=== PATIENT | female | born 1995 | race Two or more races ===

== ENCOUNTER 2018-05-01 19:10 | Emergency (ER) | payer SELFPAY ==
--- NOTE | 2018-05-01 19:42 | ER Document Report ---
ED Medical Screen (RME) - General Chief Complaint: Vag Bleeding, +preg <12wks Stated Complaint: VAGINAL BLEEDING Time Seen by Provider: 05/01/18 19:38 Mode of Arrival: Ambulatory Information source: Patient, Relative Notes: 22-year-old female at approximately 5 weeks and 5 days gestation per last menstrual period which the patient reports to be March 22, 2018 presents with complaint of abdominal cramping and vaginal bleeding that started 3 hours prior to arrival. Patient reports a positive home test. She has not received care yet. I have greeted and performed a rapid initial assessment of this patient. A comprehensive ED assessment and evaluation of the patient, analysis of test results and completion of medical decision making process we will be contacted by additional ED providers. PHYSICAL EXAMINATION: Vital signs reviewed-within normal limits GENERAL: Well-appearing, well-nourished and in no acute distress. LUNGS: No respiratory distress Musculoskeletal: Normal range of motion NEUROLOGICAL: Normal speech, normal gait. PSYCH: Normal mood, normal affect. SKIN: Warm, Dry, normal turgor, no rashes or lesions noted. TRAVEL OUTSIDE OF THE [place] IN LAST 30 DAYS: No - HPI Onset: This afternoon Onset/Duration: Sudden Quality of pain: Cramping Severity: Mild Associated Symptoms: Abdominal pain, Vaginal bleeding Exacerbated by: Denies Relieved by: Denies Similar symptoms previously: No Recently seen / treated by doctor: No - Related Data Smoking: Non-smoker Frequency of alcohol use: None Drug Abuse: None Allergies/Adverse Reactions: No Known Allergies Allergy (Unverified 05/01/18 19:14) Physical Exam - Vital signs Vitals: Temp Pulse Resp BP Pulse Ox 98.0 F 82 16 128/70 H 100 05/01/18 19:28 05/01/18 19:28 05/01/18 19:28 05/01/18 19:28 05/01/18 19:28 Course - Vital Signs Vital signs: Temp Pulse Resp BP Pulse Ox 98.0 F 82 16 128/70 H 100 05/01/18 19:28 18 19:28 18 19:28 05/01/18 19:28 05/01/18 19:28
[2018-05-01 19:56] LABS: APPEARANCE,URINE SLIGHTLY-CLOUDY; BILIRUBIN,URINE NEGATIVE (NEGATIVE); COLOR,URINE YELLOW; GLUCOSE, URINE NEGATIVE (NEGATIVE); KETONES,URINE NEGATIVE (NEGATIVE); LEUKOCYTE ESTERASE,URINE TRACE (NEGATIVE); NITRITE,URINE NEGATIVE (NEGATIVE); PROTEIN,URINE NEGATIVE (NEGATIVE); URINE SPECIFIC GRAVITY 1.015; UROBILINOGEN,URINE NEGATIVE mg/dL (<2.0)
--- NOTE | 2018-05-01 20:39 | ER Document Report ---
ED General - General Chief Complaint: Vag Bleeding, +preg <12wks Stated Complaint: VAGINAL BLEEDING Time Seen by Provider: 05/01/18 19:38 Mode of Arrival: Ambulatory Information source: Patient Notes: 22-year-old female with no prior medical problems, 1 para 0, reports positive home test (last normal period March 22) who presents to the emergency room with vaginal spotting, cramping. Patient states his symptoms started this evening. TRAVEL OUTSIDE OF THE [place] IN LAST 30 DAYS: No - HPI Onset: Just prior to arrival Onset/Duration: Gradual Quality of pain: No pain Severity: None Pain Level: Denies Associated symptoms: denies: Chest pain, Fever, Shortness of breath Exacerbated by: Denies Relieved by: Denies Similar symptoms previously: No Recently seen / treated by doctor: No - Related Data Allergies/Adverse Reactions: No Known Allergies Allergy (Unverified 05/01/18 19:14) Past Medical History - General Information source: Patient, Relative Last Menstrual Period: 03/22/18 - Social History Smoking Status: Unknown if Ever Smoked Cigarette use (# per day): No Chew tobacco use (# tins/day): No Frequency of alcohol use: None Drug Abuse: None Lives with: Family Family History: None Patient has suicidal ideation: No Patient has homicidal ideation: No - Medical History Medical History: Negative Renal/ Medical History: Denies: Hx Peritoneal Dialysis Surgical Hx: Negative Review of Systems - Review of Systems Constitutional: denies: Chills, Fever EENT: No symptoms reported Cardiovascular: No symptoms reported Respiratory: No symptoms reported Gastrointestinal: No symptoms reported Genitourinary: See HPI Female Genitourinary: See HPI Musculoskeletal: No symptoms reported Skin: No symptoms reported Hematologic/Lymphatic: No symptoms reported Neurological/Psychological: No symptoms reported Physical Exam - Vital signs Vitals: Temp Pulse Resp BP Pulse Ox 98.0 F 82 16 128/70 H 100 05/01/18 19:28 05/01/18 19:28 05/01/18 19:28 05/01/18 19:28 05/01/18 19:28 Notes: Physical exam: GENERAL: She is alert and oriented x3, no acute distress HEAD: Atraumatic, normocephalic. EYES: Pupils equal round and reactive to light, extraocular movements intact, sclera anicteric, conjunctiva are normal. ENT: TMs normal, nares patent, oropharynx clear without exudates. Moist mucous membranes. NECK: Normal range of motion, supple without obvious mass or JVD. LUNGS: Breath sounds clear to auscultation bilaterally and equal. No wheezes rales or rhonchi. HEART: Regular rate and rhythm without murmurs, rubs or gallops. ABDOMEN: Soft, normoactive bowel sounds. No tenderness to palpation. No guarding, no rebound. No masses appreciated. EXTREMITIES: Normal range of motion, no pitting or edema. No clubbing or cyanosis. NEUROLOGICAL: Cranial nerves II through XII grossly intact. Normal speech, moving all extremities. PSYCH: Normal mood, normal affect. SKIN: Warm, Dry, normal turgor, no rashes or lesions noted. Course - Re-evaluation Re-evalutation: 05/02/18 00:17 Note: Patient's blood type is Rh+. She is been hemodynamically stable. Ultrasound shows an intrauterine gestational sac. It is too early to have a heartbeat at this point. I discussed the results with the patient. I have advised her to return to the emergency room for any worsening pain or bleeding. - Vital Signs Vital signs: Temp Pulse Resp BP Pulse Ox 98.1 F 80 16 125/72 100 05/01/18 23:00 05/01/18 23:00 05/01/18 23:00 05/01/18 23:00 05/01/18 23:00 - Laboratory Laboratory results interpreted by me: 05/01/18 05/01/18 19:45 19:56 Beta HCG, Quant 4568.50 H Urine Blood SMALL H Ur Leukocyte Esterase TRACE H Urine HCG, Qual POSITIVE H Discharge - Discharge Clinical Impression: Vaginal bleeding in early Condition: Stable Disposition: HOME, SELF-CARE Instructions: Vaginal Bleeding ([facility]) Additional Instructions: As we discussed, your ultrasound shows a very early (in the fifth week gestation ). I recommend taking it easy over the next several days Drink plenty of fluids, you can take Tylenol for cramping. Return to the emergency room for worsening pain or worsening bleeding. Otherwise, follow-up with an OB doctor or the health department. Referrals: CALE PAIGE MD [ACTIVE STAFF] - Follow up as needed ([facility] the [facility]) [facility] - Follow up as needed
--- NOTE | 2018-05-01 22:38 | RADIOLOGY REPORT (SQ) ---
US PELVIS HISTORY: Early . Pelvic pain. COMPARISON: None. TECHNIQUE: Grayscale, color Doppler, and spectral Doppler ultrasound images of the pelvis were obtained. FINDINGS: The uterus measures 7.2 x 4.4 x 4.8 cm. There is an intrauterine gestational sac with a mean sac diameter of 0.85 cm which corresponds to 5 weeks 5 days of . No yolk sac or pole is visualized at this time. The cervix is closed and measures 1.8 cm in length. The right ovary was not well visualized. The left ovary measures 3.1 x 2.1 x 1.5 cm and contains normal follicles and normal color Doppler blood flow. No pelvic free fluid is seen. IMPRESSION: Intrauterine gestational sac corresponding to 5 weeks 5 days of . No yolk sac or pole is seen at this time. Recommend short-term follow-up imaging.
[2018-05-01 23:14] VITALS: BP 125/72
== END 2018-05-01 23:00 | disposition home or self-care (01) ==
LOC: ER 19:10
DX: O26.851 Spotting complicating pregnancy, first trimester (principal); O26.891 Other specified pregnancy related conditions, first trimester; R10.2 Pelvic and perineal pain; Z3A.01 Less than 8 weeks gestation of pregnancy
CPT/HCPCS: 36415; 76817; 81001; 81025; 84702; 86900; 86901; 99284

== ENCOUNTER 2018-05-25 23:31 | Emergency (ER) | payer SELFPAY ==
[2018-05-26] MEDS ORDERED: METOCLOPRAMIDE HCL INJ/PF 10 MG/2 ML SDV IV ONE (01:28)
[2018-05-26] MEDS ORDERED: NORMAL SALINE 1000 ML 1,000 ML IV ONE (01:28)
--- NOTE | 2018-05-26 01:32 | ER Document Report ---
ED General - General Chief Complaint: Allergic Reaction Stated Complaint: FACIAL ITCHING,DIZZINESS,FATIGUE,HEART RACING Time Seen by Provider: 05/26/18 01:12 Notes: Patient is a 22-year-old female, at 8 weeks gestation by first trimester u ltrasound, that comes to the emergency department for chief complaint of vomiting and dehydration and . She states when she stands up she gets lightheaded. She also has a slightly itchy rash that has developed on her face only. She denies difficulty swallowing, difficulty breathing, fever, or specific abdominal pain she denies vaginal bleeding. She does not take any daily medications, she denies any past medical history. TRAVEL OUTSIDE OF THE [place] IN LAST 30 DAYS: No - Related Data Allergies/Adverse Reactions: No Known Allergies Allergy (Unverified 05/01/18 19:14) Past Medical History - General Information source: Patient - Social History Smoking Status: Never Smoker Frequency of alcohol use: None Drug Abuse: None Lives with: Family Family History: None - Medical History Medical History: Negative Renal/ Medical History: Denies: Hx Peritoneal Dialysis Surgical Hx: Negative - Immunizations Immunizations up to date: Yes Hx Diphtheria, Pertussis, Tetanus Vaccination: Yes Review of Systems - Review of Systems Constitutional: No symptoms reported EENT: No symptoms reported Cardiovascular: See HPI Respiratory: No symptoms reported Gastrointestinal: See HPI Genitourinary: No symptoms reported Female Genitourinary: No symptoms reported Musculoskeletal: No symptoms reported Skin: See HPI Hematologic/Lymphatic: No symptoms reported Neurological/Psychological: No symptoms reported Physical Exam - Vital signs Vitals: Temp Pulse Resp BP Pulse Ox 98.1 F 73 18 127/76 H 98 05/26/18 00:07 05/26/18 00:07 05/26/18 00:07 05/26/18 00:07 05/26/18 00:07 - Notes Notes: GENERAL: Alert, interacts well. No acute distress. HEAD: Normocephalic, atraumatic. EYES: Pupils equal, round, and reactive to light. Extraocular movements intact. ENT: Oral mucosa dry, tongue midline. Oropharynx unremarkable. Airway patent. Nares patent, no nasal septal hematoma, TM's intact. NECK: Full range of motion. Supple. Trachea midline. LUNGS: Clear to auscultation bilaterally, no wheezes, rales, or rhonchi. No respiratory distress. HEART: Regular rate and rhythm. No murmur ABDOMEN: Soft, non-tender. Non-distended. Bowel sounds present in all 4 quadrants. GENITOURINARY: Deferred EXTREMITIES: Moves all 4 extremities spontaneously. No edema, normal radial and dorsalis pedis pulses bilaterally. No cyanosis. BACK: no cervical, thoracic, lumbar midline tenderness. No saddle anesthesia, normal distal neurovascular exam. NEUROLOGICAL: Alert and oriented x3. Normal speech. [cranial nerves II through XII grossly intact]. PSYCH: Normal affect, normal mood. SKIN: There is a patchy, erythematous rash over the face, this is faint, no pustules, papules, wheals, vesicles, bulla, induration, or fluctuance. Course - Re-evaluation Re-evalutation: Mildly itchy rash over the face is most consistent with rash of . No evidence of urticaria, no evidence of necrotizing fasciitis, abscess, or other concerning abnormality. No other signs of possible allergy. Treating symptom of itching. Provided with Reglan, IV fluids. After Reglan patient started to have restless legs. She was given Benadryl and this resolved. After IV fluids she states her symptoms have completely resolved. No symptoms of dizziness. CBC unremarkable, chemistry generally unremarkable except for minimal elevation of the LFTs. Abdomen is completely benign. No bleeding or abdominal pain reported. Urinalysis showing some dehydration but otherwise a normal. Culture placed. Discussed with patient. Requesting to go home with nausea medication, does not want Reglan. Discussed Zofran and possible side effects, after discussion decision was made to provide her with this. Discussed follow-up and return precautions. Patient states understanding and agreement. - Vital Signs Vital signs: Temp Pulse Resp BP Pulse Ox 98.1 F 73 18 111/54 L 100 05/26/18 00:07 05/26/18 00:07 05/26/18 02:38 05/26/18 02:38 05/26/18 02:38 - Laboratory Result Diagrams: 05/26/18 01:36 05/26/18 01:36 Laboratory results interpreted by me: 05/26/18 05/26/18 01:22 01:36 Creatinine 0.51 L Calcium 10.4 H AST 38 H ALT 54 H Ur Leukocyte Esterase TRACE H Urine Ascorbic Acid 40 H Discharge - Discharge Clinical Impression: Dehydration, Vomiting affecting , Facial rash Condition: Stable Disposition: HOME, SELF-CARE Additional Instructions: You have been treated for dehydration. Take Zofran if needed for nausea/vomiting. Consider [id number] medication such as Pepcid for GI upset. To help with the itching of the rash take the Zyrtec as prescribed. This rash should resolve with time. Follow-up with primary care. Return if you worsen including severe spreading rash, fever, severe abdominal pain, passing out, or any other concerning or worsening symptoms. Prescriptions: Cetirizine HCl [Zyrtec 10 mg Tablet] 1 tab PO DAILY #30 tablet Ondansetron [Zofran Odt 4 mg Tablet] 1 - 2 tab PO Q4H PRN #30 tab.rapdis PRN Reason: For Nausea/Vomiting
[2018-05-26 01:47] LABS: ABSOLUTE EOSINOPHILS # (AUTO) 0.1 10^3/uL (0.0-0.6); ABSOLUTE LYMPHOCYTES (AUTO) 2.9 10^3/uL (0.5-4.7); ABSOLUTE MONOCYTES (AUTO) 0.8 10^3/uL (0.1-1.4); ABSOLUTE NEUT (AUTO) 6.7 10^3/uL (1.7-8.2); BASOPHILS % (AUTO) 0.4 % (0-2); EOSINOPHILS % (AUTO) 0.6 % (0-6); HEMATOCRIT 37.7 % (36.0-47.0); HEMOGLOBIN 13.1 g/dL (12.0-15.5); LYMPHOCYTES % (AUTO) 27.9 % (13-45); MEAN CORPUSCULAR HEMOGLOBIN 29.6 pg (27.0-33.4); MEAN CORPUSCULAR HGB CONC 34.7 g/dL (32.0-36.0); MEAN CORPUSCULAR VOLUME 85 fl (80-97); MONOCYTES % (AUTO) 7.6 % (3-13); PLATELET COUNT 271 10^3/uL (150-450); RED BLOOD COUNT 4.42 10^6/uL (3.72-5.28); RED CELL DISTRIBUTION WIDTH 13.2 % (11.5-14.0); SEGMENTED NEUTROPHILS % (AUTO) 63.5 % (42-78); TOTAL CELLS COUNTED % (AUTO) 100 %; WHITE BLOOD COUNT 10.5 10^3/uL (4.0-10.5)
[2018-05-26 01:49] LABS: APPEARANCE,URINE SLIGHTLY-CLOUDY; BILIRUBIN,URINE NEGATIVE (NEGATIVE); CALCIUM OXALATE CRYSTALS,URINE FEW /HPF; COLOR,URINE YELLOW; GLUCOSE, URINE NEGATIVE (NEGATIVE); KETONES,URINE NEGATIVE (NEGATIVE); LEUKOCYTE ESTERASE,URINE TRACE (NEGATIVE); NITRITE,URINE NEGATIVE (NEGATIVE); PROTEIN,URINE NEGATIVE (NEGATIVE); URINE SPECIFIC GRAVITY 1.028; UROBILINOGEN,URINE NEGATIVE mg/dL (<2.0)
[2018-05-26 02:07] LABS: ALANINE AMINOTRANSFERASE 54 U/L (9-52); ALBUMIN 4.6 g/dL (3.5-5.0); ALKALINE PHOSPHATASE 81 U/L (38-126); ANION GAP 11 (5-19); ASPARTATE AMINO TRANSFERASE 38 U/L (14-36); BILIRUBIN,DIRECT 0.1 mg/dL (0.0-0.4); BILIRUBIN,TOTAL 0.3 mg/dL (0.2-1.3); BLOOD UREA NITROGEN 11 mg/dL (7-20); CALCIUM 10.4 mg/dL (8.4-10.2); CARBON DIOXIDE 24 mmol/L (22-30); CHLORIDE 104 mmol/L (98-107); GLUCOSE 99 mg/dL (75-110); POTASSIUM 4.2 mmol/L (3.6-5.0); SODIUM 139.4 mmol/L (137-145); TOTAL PROTEIN 7.7 g/dL (6.3-8.2)
[2018-05-26] MEDS ORDERED: DIPHENHYDRAMINE HCL 50 MG/ML VIAL IV ONE (02:29)
[2018-05-26] MEDS ORDERED: ONDANSETRON ODT 4 MG TAB (6 TAB/ER DISP) PO PRN (03:35)
[2018-05-26 03:59] VITALS: BP 101/66
== END 2018-05-26 03:58 | disposition home or self-care (01) ==
LOC: ER 23:31
DX: O21.9 Vomiting of pregnancy, unspecified (principal); O26.891 Other specified pregnancy related conditions, first trimester; R21 Rash and other nonspecific skin eruption; L29.8 Other pruritus; R42 Dizziness and giddiness; R79.89 Other specified abnormal findings of blood chemistry; O99.281 Endocrine, nutritional and metabolic diseases complicating pregnancy, first trimester; E86.0 Dehydration; O99.351 Diseases of the nervous system complicating pregnancy, first trimester; G25.81 Restless legs syndrome; Z3A.08 8 weeks gestation of pregnancy
CPT/HCPCS: 99283; 96361; 96374; 96375; 36415; 87086; 85025; 87088; 80053; 81001; J1200; J2765; J7030